=== PATIENT | male | born 1960 | race Caucasian/White ===

== ENCOUNTER 2017-05-16 21:28 | Inpatient (IN) | payer OTHER ==
[~2017-05-16] VITALS: Ht 175.2 cm; Wt 97.5 kg
--- NOTE | ~2017-05-16 | WRIGHTHP ---
[place], [place] PATIENT HISTORY AND PHYSICAL EXAM NAME: ROSINA GARNICA UNIT #: [id number] ROOM: 314 DOCTOR: ARTHUR CAMARGO MD BIRTHDATE: [birth year] DOS: 05/17/2017 REASON FOR HOSPITALIZATION: Increased depression and suicidal ideation with a plan to jump out from the bridge. HISTORY OF PRESENT ILLNESS: The patient seen and chart reviewed. A 57-year-old male who actually presented to [facility] with his prestidigitator for increased depression and suicidal ideation with a plan to jump off of a bridge. The patient got stabilized medically into the ER and then sent to the psychiatric unit for further care and stabilization. In the ER, his labs were within normal limit. Urine drug screen was negative. The patient was pleasant and cooperative during the interview. He mentioned that he heard someone talking about him about a month ago and then he left the town for a week. He said that he came back yesterday, but afraid of going back to his apartment. He said that he became increasingly depressed, sad, hopeless, helpless with lack of energy and motivation. He was having suicidal thoughts. He called his prestidigitator, wanted to talk with him and then his prestidigitator then told him to go to the ER and get help. He said that he went to the ER with his prestidigitator. He mentioned that the reason he has been feeling for the last several years because people have been talking about him. He said that people are making fun about his mental illness and the fact that he gets social security. He said that people are calling the government and pressing charges against him, so that he ended up going to the senior care. He said that he went to the police station to check out that if he has any pending legal charges or not. The patient mentioned that he found out there were no legal charges and the police reassured him that his name has not been there also. The patient talked about not taking his medication regularly. He mentioned that he stopped taking his medication and since then his symptoms started getting worse. When I asked him that why he stopped taking medication, he was not able to come up with any answer, he said "I don't know." Besides thinking that people were talking about him, he denied any other symptoms of psychosis. ALLERGIES: No known drug allergies. PAST MEDICAL HISTORY: Diabetes mellitus, hyperlipidemia, asthma. PAST PSYCHIATRIC HISTORY: One prior psychiatric hospitalization, one prior suicide attempt by overdose on medications. No suicide in the family. He denied having any gun at home. SUBSTANCE ABUSE HISTORY: Nothing reported. SOCIAL HISTORY: He was born and raised in [place], [place], high school graduate. Never . No kids. He is unemployed, on social security. He lives by himself. He denied any history of physical or sexual abuse. He mentioned that he has three sisters and he had good relationship with them. MENTAL STATUS EXAMINATION: The patient was pleasant and cooperative. He was [place], [place] PATIENT HISTORY AND PHYSICAL EXAM NAME: ROSINA GARNICA UNIT #: [id number] ROOM: 314 DOCTOR: ARTHUR CAMARGO MD BIRTHDATE: [birth year] alert and oriented to day, date, month and year. He described his mood as "down." Affect was constricted. Thought process goal directed. No flight of ideas or loosening of association. He denied auditory or visual hallucination, but he is delusional and paranoid. He denied any homicidal ideation, but he still had fleeting suicidal ideation, but no intent or plan. Insight and judgment poor to fair. ASSESSMENT: Major depressive disorder, recurrent with psychotic feature, currently depressed and suicidal. PLAN: 1. I will restart him back on Zoloft 100 mg in the morning and Abilify 15 mg at night. The patient mentioned that the medications were helping him. 2. I will start him back on Vistaril 50 mg twice a day. 3. A 1:1 therapist, psychoeducation, coping skill. 4. Need to get collateral information. 5. Encourage activity in groups. ARTHUR CAMARGO MD CM:HISPHYS:PATIENT HISTORY AND PHYSICAL EXAMINATION [id number] ARTHUR CAMARGO MD 05/17/17 1056 interface
--- NOTE | ~2017-05-16 | DS ---
[place], [place] DISCHARGE SUMMARY NAME: ROSINA GARNICA UNIT #: [id number] ROOM: 314 DOCTOR: JAY GARZA MD BIRTHDATE: [birth year] DOS: 05/20/2017 CHIEF COMPLAINT: "I am just so depressed, I was going to commit suicide. HISTORY OF PRESENT ILLNESS: This is a 57-year-old white male who had initially presented to the [facility] with his school age program associate stating that he was increasingly depressed and suicidal with a plan to jump off of a bridge. The patient reports that he had been on Abilify and Zoloft, but had run out of the medication for some time and gradually fell back into a depression. During this period of time, he has noted poor sleep and appetite, anergy, anhedonia, hopeless, helpless feelings, crying spells, and fleeting suicidal thoughts with a plan. The patient also reports that he is having some thoughts of paranoia and believes people are calling the government and pressing charges against him so that he can go to shelter. He feels that people are talking about him on the streets and is very suspicious of others. Once he was evaluated at [facility] and drug screen was negative and he was found to be medically clear, he was transferred to the [facility] for further crisis stabilization. PAST MEDICAL HISTORY: Remarkable for new onset of diabetes. Also, hyperlipidemia and asthma. SUMMARY OF HOSPITAL COURSE: The patient was admitted to the [facility] by Dr. Escobedo, who was covering for [place] and restarted on Zoloft 100 mg at bedtime along with Abilify 15 mg a day and Vistaril 50 mg twice daily as a nonaddicting antianxiety medication. Within a matter of days of starting the medication, the patient noticed an improvement. Sleep and appetite normalized first. He was able to feel more comfortable around others and actively engaged in individual and group activities. He felt that the medications were working to the point where he was making positive plans for the future and feeling that he could go home and follow up at the [facility] for further treatment and group therapy activities. The patient convincingly denied suicidal thoughts, homicidal thoughts, any self-injurious thoughts and denied any medication side effects themselves. The patient was discharged then to return home on 05/20/2017. MENTAL STATUS AT DISCHARGE: The patient was alert and oriented. Mood was euthymic. Affect appropriate. There was no hypomania or sb. There are no overt auditory or visual hallucinations. No delusions, no paranoia. Short, intermediate, and long-term memory were intact. PLAN: All of his prescriptions have been E[facility]scribed to [facility] except for his vitamin D prescription which was printed and will be sent with him. He will have followup at the [facility] and he has been told to call here if he has any issues regarding his medications or other issues. [place], [place] DISCHARGE SUMMARY NAME: ROSINA GARNICA UNIT #: [id number] ROOM: 314 DOCTOR: JAY GARZA MD BIRTHDATE: [birth year] JAY GARZA MD CM:CLAUDETTE 0950 JAY GARZA MD 05/20/17 0948 interface
--- NOTE | ~2017-05-16 | PR ---
[place], [place] PROGRESS NOTE [id number] UNIT #: [id number] ROOM: 314 DOCTOR: JAY GARZA MD BIRTHDATE: [birth year] DOS: 05/19/2017 CHIEF COMPLAINT: "I am feeling better, thank you." SUMMARY OF THE VISIT: The patient was interviewed in the group therapy room. He reports that the stress level at home was getting to him and that he was not taking his medicines correctly. Now that he is back on them, at least the Abilify, the Vistaril and the Zoloft, he is beginning to feel better. He is sleeping better. His appetite is improved and his overall outlook is improving. We discussed at length possibly going to the [facility] and he did report to me that this program has been brought to his attention previously by his outpatient provider and he is interested in learning more about it. MENTAL STATUS: He is alert and oriented to person, place and time. Mood does seem to be trending towards euthymia. Affect is more appropriate. There is no sb or hypomania. There are no overt auditory or visual hallucinations. No delusions, no paranoia. Short, intermediate, and long-term memory are intact. PLAN: I will maintain his current psychotropic regimen given the fact that he is achieving benefits without side effects. On screening examinations, his vitamin D level is low at 14.9, so I will order vitamin D 50,000 International Units q. Friday. His vitamin B12 level is low normal at 335, so I will give him a vitamin B12 injection of 1000 mcg IM today. Continue to engage in individual and mccoy milieu activity, returning home when psychiatrically stable. JAY GARZA MD CM:PNTRANS [phone] JAY GARZA MD 05/19/17900 interface
--- NOTE | ~2017-05-16 | PR ---
[place], [place] PROGRESS NOTE NAME: [facility]ARN[id number] UNIT #: [id number] ROOM: 314 DOCTOR: ARTHUR CAMARGO MD BIRTHDATE: [birth year] DOS: 05/18/2017 SUBJECTIVE: The patient seen and spoke with the staff. Per staff, the patient is isolative. Medication compliant. No behavioral problems or issues in the unit. The patient was in the day area. He came out from the room to speak with me. He said that he still feels paranoid but does not hear any voices. He still had fleeting suicidal ideation, but no intent or plan. He reports good sleep. He denied any problem with his appetite. He denied any side effect from the medication also. MENTAL STATUS EXAMINATION: The patient was pleasant and cooperative. Described his mood as "okay " Affect was constricted. Thought process goal directed. No flight of ideas, loosening of association. He denied auditory or visual hallucination. He is still paranoid. He had fleeting suicidal ideation, but no intent or plan. Denied any homicidal ideation, intent or plan. PLAN: 1. Continue current medication and care. 2. Continue redirection. 3. Encourage activity and groups. ARTHUR CAMARGO MD CM:PNTRANS [id number] [phone] ARTHUR CAMARGO MD 05/18/172103 interface
[2017-05-16] MEDS ORDERED: PROVENTIL HFA6.7 GM INH (22:05)
[2017-05-16] MEDS ORDERED: SERTRALINE HYD100 MG PO (22:38)
[2017-05-16] MEDS ORDERED: OMEPRAZOLE D/R20 MG PO (22:40)
[2017-05-16] MEDS ORDERED: DIVALPROEX SOD500 M1 PO (22:41)
[2017-05-16] MEDS ORDERED: ARIPIPRAZOLE15 MG PO (22:42)
[2017-05-16] MEDS ORDERED: DULERA 100 MCG8.8 GM INH (22:44)
[2017-05-16] MEDS ORDERED: HYDROXYZINE PAM25 M1 PO (22:46)
[2017-05-16 23:51] VITALS: BP 138/93
[2017-05-16 23:58] VITALS: BP 138/93
[2017-05-17 00:39] LABS: BILIRUBIN NEGATIVE (NEGATIVE); BLOOD NEGATIVE (NEGATIVE); CLARITY SL CLOUDY (CLEAR); COLOR YELLOW (YELLOW); GLUCOSE 3+ (NEGATIVE); KETONE NEGATIVE (NEGATIVE); LEUKO ESTERASE NEGATIVE (NEGATIVE); NITRITE NEGATIVE (NEGATIVE); PH 5.5 (5.0-9.0); SPECIFIC GRAVITY <= 1.005 (1.005-1.030); UROBILINOGEN 0.2 E.U./dl (0.2-1.0)
[2017-05-17 00:50] LABS: WBC 0-2 wbc/hpf (0-5)
[2017-05-17 06:49] LABS: BASO # 0.1 10*3/uL (0.0-0.1); BASO % 0.8 % (0.0-1.0); EOS # 0.4 10*3/uL (0.0-0.4); EOS % 5.3 % (1.0-4.0); HEMATOCRIT 41.1 % (42.0-52.0); HEMOGLOBIN 14.8 g/dl (14.0-18.0); LYMPH # 1.8 10*3/uL (1.3-4.4); LYMPH % 27.6 % (27.0-41.0); MEAN CELL VOLUME 86.9 fl (80.0-94.0); MEAN CORPUSCULAR HGB 31.3 pg (27.0-31.0); MONO # 0.6 10*3/uL (0.1-1.0); MONO % 8.5 % (3.0-9.0); NEUT # 3.8 10*3/uL (2.3-7.9); NEUT % 57.2 % (47.0-73.0); PLATELET COUNT AUTOMATED 185 10*3/uL (130-400); RED BLOOD COUNT 4.73 10*6/uL (4.50-5.90); RED CELL DISTRI WIDTH 12.1 % (0-14.5); WHITE BLOOD COUNT 6.6 10*3/uL (4.8-10.8)
[2017-05-17 07:00] LABS: ALBUMIN 3.7 gm/dl (3.1-4.5); ALKALINE PHOSPHATASE 68 U/L (45-117); BUN 13 mg/dl (7-24); CHLORIDE 102 mmol/L (98-107); CHOLESTEROL 144 mg/dL (<200); CREATININE 1.08 mg/dL (0.70-1.30); HDL CHOLESTEROL 27 mg/dl (40-60); LDL CHOLESTEROL 66 mg/dL (9-159); POTASSIUM 4.4 mmol/L (3.5-5.1); SGOT/AST 42 IU/L (3-35); SGPT/ALT 67 U/L (12-78); SODIUM 138 mmol/L (136-145); TOTAL PROTEIN 7.2 gm/dL (6.4-8.2); TRIGLYCERIDES 254 mg/dl (<150); VLDL CHOLESTEROL 51 mg/dL (6-40)
[2017-05-17 07:05] LABS: VALPROIC ACID (DEPAKENE) < 3.0 ug/ml (50-100)
[2017-05-17 08:18] LABS: VITAMIN D, 25-HYDROXY 14.9 ng/mL (30-100)
[2017-05-17 08:36] VITALS: BP 140/82
[2017-05-17 20:26] VITALS: BP 118/78; BP 139/79
[2017-05-18 08:19] VITALS: BP 126/81
[2017-05-18 20:00] VITALS: BP 136/86
[2017-05-19 07:37] VITALS: BP 132/78
[2017-05-19 20:33] VITALS: BP 141/82
[2017-05-20 07:27] VITALS: BP 136/79
[2017-05-20] MEDS ORDERED: ATARAX,VISTARIL50 MG PO (09:00)
[2017-05-20] MEDS ORDERED: SERTRALINE HYD100 MG PO (09:00)
[2017-05-20] MEDS ORDERED: ARIPIPRAZOLE15 MG PO (09:00)
[2017-05-20] MEDS ORDERED: Vitamin D PO (09:00)
[2017-05-20] MEDS ORDERED: METFORMIN1000 MG PO (11:45)
== END 2017-05-20 15:50 | disposition home or self-care (01) | DRG 885 ==
LOC: 3N 21:28
PROVIDERS: Psychiatry & Neurology Psychiatry
DX: F33.3 Major depressive disorder, recurrent, severe with psychotic symptoms (principal); R45.851 Suicidal ideations; E11.65 Type 2 diabetes mellitus with hyperglycemia; E78.5 Hyperlipidemia, unspecified; F41.9 Anxiety disorder, unspecified; J45.20 Mild intermittent asthma, uncomplicated; G47.00 Insomnia, unspecified; K21.9 Gastro-esophageal reflux disease without esophagitis; Z80.0 Family history of malignant neoplasm of digestive organs; Z79.899 Other long term (current) drug therapy

== ENCOUNTER 2018-01-17 13:11 | Inpatient (IN) | payer OTHER ==
[~2018-01-17] VITALS: Ht 175.2 cm; Wt 83.0 kg
--- NOTE | ~2018-01-17 | EKG ---
[place], [place] ELECTROCARDIOGRAM REPORT NAME: ROSINA GARNICA UNIT #: [id number] ROOM: [facility] DOCTOR: MILEY DRAFT REPORT BIRTHDATE: [birth year] [facility] Test Date: 2018-01-17 Test Time: 14:23:01 Pat Name: ROSINA GARNICA Department: ER Room: [facility] Gender: M Heavy Mobile Equipment Operator: : 1960 Requested By: FLAKITO POTTS Order Number: [id number] Reading MD: Claudy Taylor MD Measurements Intervals [place] Rate: 109 P: 48 NE: 178 QRS: 30 QRSD: 94 T: 8 QT: 331 QTc: 446 Interpretive Statements Sinus tachycardia The ECG is normal. Electronically Signed On 01-18-2018 5:35:33 PDT by Claudy Taylor MD CM:EKGRPT:ELECTROCARDIOGRAM REPORT [id number] [id number] FLAKITO HEWITT DRAFT REPORT FLAKITO POTTS DO
[~2018-01-17 13:11] MED LIST: ARIPIPRAZOLE15 MG PO; ATARAX,VISTARIL50 MG PO; DIVALPROEX SOD500 M1 PO; DULERA 100 MCG8.8 GM INH; HYDROXYZINE PAM25 M1 PO; METFORMIN1000 MG PO; OMEPRAZOLE D/R20 MG PO; PROVENTIL HFA6.7 GM INH; SERTRALINE HYD100 MG PO; Vitamin D PO
[2018-01-17 13:13] VITALS: BP 140/80
[2018-01-17 14:15] LABS: BASO % 0.3 % (0.0-1.0); EOS # 0.1 10*3/uL (0.0-0.4); EOS % 0.6 % (1.0-4.0); HEMATOCRIT 42.8 % (42.0-52.0); LYMPH # 2.1 10*3/uL (1.3-4.4); MEAN CELL VOLUME 88.4 fl (80.0-94.0); MEAN PLATELET VOLUME 8.8 fl (9.6-12.3); MONO # 0.8 10*3/uL (0.1-1.0); MONO % 8.6 % (3.0-9.0); NEUT # 6.1 10*3/uL (2.3-7.9); NEUT % 67.2 % (47.0-73.0); PLATELET COUNT AUTOMATED 217 10*3/uL (130-400); RED BLOOD COUNT 4.84 10*6/uL (4.50-5.90); RED CELL DISTRI WIDTH 12.4 % (0-14.5); WHITE BLOOD COUNT 9.1 10*3/uL (4.8-10.8)
[2018-01-17 14:22] LABS: ACT PARTIAL THROMBO TIME 27.9 SECONDS (20.8-31.5)
[2018-01-17 14:28] LABS: ALBUMIN 4.2 gm/dl (3.1-4.5); ALKALINE PHOSPHATASE 71 U/L (45-117); BUN 14 mg/dl (7-24); CHLORIDE 101 mmol/L (98-107); CREATININE 1.25 mg/dL (0.70-1.30); LIPASE 155 U/L (73-393); POTASSIUM 4.4 mmol/L (3.5-5.1); SGOT/AST 23 IU/L (3-35); SGPT/ALT 31 U/L (12-78); SODIUM 136 mmol/L (136-145); TOTAL PROTEIN 7.6 gm/dL (6.4-8.2)
[2018-01-17 14:30] LABS: ACETAMINOPHEN (TYLENOL) < 2.0 ug/ml (10-30); ETHYL ALCOHOL < 3.0 mg/dl (<3); TROPONIN I 0.208 ng/ml (<0.045)
[2018-01-17 14:45] VITALS: BP 146/76
[2018-01-17 16:00] VITALS: BP 133/84
[2018-01-17 20:00] VITALS: BP 129/72
[2018-01-17 22:36] LABS: BILIRUBIN NEGATIVE (NEGATIVE); BLOOD NEGATIVE (NEGATIVE); CLARITY CLEAR (CLEAR); COLOR YELLOW (YELLOW); GLUCOSE 1+ (NEGATIVE); KETONE NEGATIVE (NEGATIVE); LEUKO ESTERASE NEGATIVE (NEGATIVE); NITRITE NEGATIVE (NEGATIVE); PH 6.5 (5.0-9.0); UROBILINOGEN 0.2 E.U./dl (0.2-1.0)
[2018-01-17 22:44] LABS: URINE AMPHETAMINES < 1000 (1000ng/ml); URINE BARBITURATES < 200 (200ng/ml); URINE BENZODIAZEPINES < 200 (200ng/ml); URINE CANNABINOIDS (THC) < 50 (50ng/ml); URINE COCAINE < 300 (300ng/ml); URINE METHADONE < 300 (300ng/ml); URINE OPIATES < 300 (300ng/ml)
[2018-01-17 22:48] LABS: URINE PHENCYCLIDINE < 25 (25ng/ml)
[2018-01-17 23:01] LABS: WBC 0-2 wbc/hpf (0-5)
[2018-01-18] VITALS: BP 139/87
[2018-01-18 06:29] LABS: ALBUMIN 3.6 gm/dl (3.1-4.5); ALKALINE PHOSPHATASE 52 U/L (45-117); BUN 10 mg/dl (7-24); CHLORIDE 105 mmol/L (98-107); CHOLESTEROL 135 mg/dL (<200); HDL CHOLESTEROL 27 mg/dl (40-60); LDL CHOLESTEROL 77 mg/dL (9-159); PHOSPHOROUS 3.5 mg/dL (2.5-4.9); POTASSIUM 4.3 mmol/L (3.5-5.1); SGOT/AST 22 IU/L (3-35); SGPT/ALT 26 U/L (12-78); SODIUM 138 mmol/L (136-145); TOTAL PROTEIN 6.6 gm/dL (6.4-8.2); TRIGLYCERIDES 153 mg/dl (<150); VLDL CHOLESTEROL 31 mg/dL (6-40)
[2018-01-18 06:30] LABS: FREE T4 1.05 ng/dl (0.76-1.46)
[2018-01-18 06:31] LABS: TROPONIN I 0.159 ng/ml (<0.045)
[2018-01-18 06:34] LABS: BASO # 0.1 10*3/uL (0.0-0.1); BASO % 0.8 % (0.0-1.0); EOS # 0.3 10*3/uL (0.0-0.4); EOS % 3.5 % (1.0-4.0); HEMATOCRIT 39.7 % (42.0-52.0); HEMOGLOBIN 13.5 g/dl (14.0-18.0); LYMPH # 2.3 10*3/uL (1.3-4.4); LYMPH % 31.7 % (27.0-41.0); MEAN CELL VOLUME 90.6 fl (80.0-94.0); MEAN CORPUSCULAR HGB 30.8 pg (27.0-31.0); MONO # 0.6 10*3/uL (0.1-1.0); NEUT # 3.9 10*3/uL (2.3-7.9); NEUT % 54.4 % (47.0-73.0); PLATELET COUNT AUTOMATED 205 10*3/uL (130-400); RED BLOOD COUNT 4.38 10*6/uL (4.50-5.90); RED CELL DISTRI WIDTH 12.5 % (0-14.5); WHITE BLOOD COUNT 7.1 10*3/uL (4.8-10.8)
[2018-01-18 06:53] LABS: ACT PARTIAL THROMBO TIME 28.1 SECONDS (20.8-31.5)
[2018-01-18 07:43] LABS: VITAMIN D, 25-HYDROXY 19.5 ng/mL (30-100)
[2018-01-18 08:00] VITALS: BP 122/78
[2018-01-18 12:00] VITALS: BP 135/80
[2018-01-18 16:00] VITALS: BP 147/86
[2018-01-18 20:00] VITALS: BP 146/87
[2018-01-19] VITALS: BP 127/105
[2018-01-19 04:00] VITALS: BP 153/97
[2018-01-19 05:37] LABS: BASO % 0.4 % (0.0-1.0); EOS # 0.1 10*3/uL (0.0-0.4); EOS % 1.1 % (1.0-4.0); HEMATOCRIT 37.8 % (42.0-52.0); HEMOGLOBIN 13.1 g/dl (14.0-18.0); LYMPH # 1.4 10*3/uL (1.3-4.4); MEAN CELL VOLUME 88.5 fl (80.0-94.0); MEAN CORPUSCULAR HGB 30.7 pg (27.0-31.0); MEAN CORPUSCULAR HGB CONC 34.7 g/dl (33.0-37.0); MEAN PLATELET VOLUME 8.7 fl (9.6-12.3); MONO # 0.5 10*3/uL (0.1-1.0); MONO % 7.6 % (3.0-9.0); NEUT # 4.9 10*3/uL (2.3-7.9); NEUT % 70.6 % (47.0-73.0); PLATELET COUNT AUTOMATED 177 10*3/uL (130-400); RED BLOOD COUNT 4.27 10*6/uL (4.50-5.90); RED CELL DISTRI WIDTH 11.9 % (0-14.5)
[2018-01-19 05:53] LABS: BUN 8 mg/dl (7-24); CHLORIDE 106 mmol/L (98-107); CREATININE 0.93 mg/dL (0.70-1.30); SODIUM 139 mmol/L (136-145)
[2018-01-19 05:54] LABS: TROPONIN I 0.066 ng/ml (<0.045)
[2018-01-19 08:00] VITALS: BP 135/82
[2018-01-19 16:00] VITALS: BP 130/77
[2018-01-26] MEDS ORDERED: VITAMIN D5000 UNI1 PO (08:45)
[2018-01-26] MEDS ORDERED: B121000 MCG/1 IM (08:45)
[2018-01-26] MEDS ORDERED: MIRTAZAPINE15 M2 PO (08:45)
[2018-01-26] MEDS ORDERED: PALIPERIDONE ER6 MG PO (08:45)
== END 2018-01-19 18:15 | disposition home health service (06) | DRG 885 ==
LOC: ED 13:11 → ICCU 15:23 → EDHOLD 15:23 → ICCU 15:49
PROVIDERS: Emergency Medicine; Family Medicine; Internal Medicine; Student in an Organized Health Care Education/Training Program
PROC: 4A02XM4 Measurement of Cardiac Total Activity, External Approach (ICD-10-PCS; principal; 2018-01-19)
DX: F20.9 Schizophrenia, unspecified (principal); R45.851 Suicidal ideations; E87.2 Acidosis; F32.9 Major depressive disorder, single episode, unspecified; E11.65 Type 2 diabetes mellitus with hyperglycemia; F41.9 Anxiety disorder, unspecified; R74.8 Abnormal levels of other serum enzymes; J45.909 Unspecified asthma, uncomplicated; E78.5 Hyperlipidemia, unspecified; Z91.5 Personal history of self-harm; Z91.89 Other specified personal risk factors, not elsewhere classified; Z80.0 Family history of malignant neoplasm of digestive organs; Z79.84 Long term (current) use of oral hypoglycemic drugs; Z79.51 Long term (current) use of inhaled steroids; Z79.899 Other long term (current) drug therapy

== ENCOUNTER 2018-10-29 17:59 | Inpatient (IN) | payer OTHER ==
[~2018-10-29] VITALS: Ht 175.2 cm; Wt 89.8 kg
--- NOTE | ~2018-10-29 | PR ---
[place], [place] PROGRESS NOTE NAME: ROSINA GARNICA UNIT #: [id number] ROOM: 312 DOCTOR: ARTHUR CAMARGO MD BIRTHDATE: [birth year] DOS: 11/06/2018 SUBJECTIVE: Patient seen and spoke with the staff. Per staff, the patient is doing well. Still paranoid, but no behavior problems or issues. He slept 8 hours. He is compliant with his medication. The patient was pleasant and cooperative. He said that he is feeling "a little better." Still feels paranoid, but not as strong as before. The patient mentioned that his social secretary is working on it also with the legal side of it. MENTAL STATUS EXAMINATION: The patient was pleasant and cooperative. Described his mood as "okay." Affect was euthymic. Thought process goal directed. No flight of ideas, loosening of association. He denied auditory or visual hallucination. He seems to be delusional and paranoid. He denied suicidal ideation, intent or plan. He also denied homicidal ideation, intent or plan. PLAN: 1. Continue current medication and care. 2. Continue redirection and supportive care. ARTHUR CAMARGO MD CM:PNAKIRA [id number] ARTHUR CAMARGO MD 11/07/18 0218 interface
--- NOTE | ~2018-10-29 | CON ---
[place], [place] REPORT OF CONSULTATION NAME: ROSINA GARNICA UNIT #: [id number] ROOM: 312 DOCTOR: PHD ANNA MASSIMO BIRTHDATE: [birth year] DOS: 11/03/2018 HISTORY OF PRESENT ILLNESS: The patient is a 58-year-old male referred by Michelle Larkin CNP for counseling. At the present time, the patient is on the [facility] Unit at [facility]. He was admitted following a suicide attempt. He tried to kill himself by electrocuting himself in the shower and drinking about 12 ounces of operations planner. He also was experiencing auditory hallucinations and paranoia. He lives alone. He is single and has no children. He is on disability. He denied alcohol, tobacco and illegal drug use. PAST MEDICAL HISTORY: Anxiety, depression, gastroesophageal reflux disease, hyperglycemia, insomnia, schizophrenia, suicidal ideation, previous history of drug overdose and previous history of suicide attempts. MEDICATIONS: Cymbalta, Lipitor, Glucophage, Zyrtec, vitamin D, Risperdal, Carafate, Benadryl, Geodon, Maalox, milk of magnesia, Tylenol, Remeron, Ativan. The patient was sitting comfortably, in no apparent distress. He was awake, alert and oriented to person, place and time. Mood was depressed and anxious. Affect was blunted. He denied current suicidal ideation, plan and intent. There is no homicidal ideation. Speech and language were within normal limits conversationally. Thought process was goal directed. He did not appear to be responding to internal stimuli. He believes that there is a warrant out for his arrest for disability fraud. He remains convinced of this despite law enforcement having told and there is no warrant prior to his hospitalization. Engaged in cognitive restructuring with little success. Also discussed safety planning with the patient and processed grief over his mother's 10 years ago utilized CBT and supportive therapy interventions. DIAGNOSIS: Schizoaffective disorder. PLAN: The patient follows up with a therapist, psychiatrist and manager case management at the counseling center in [place] and plans to continue this when he is discharged. I will follow him as an inpatient as needed. Thank you very much for this consult. Helen Plaza, PhD CM:CONSTR:REPORT OF CONSULTATION 1157 11/04/18 0136 interface
--- NOTE | ~2018-10-29 | PR ---
[place], [place] PROGRESS NOTE [id number] UN[facility] #: [id number] ROOM: 312 DOCTOR: ARTHUR CAMARGO MD BIRTHDATE: [birth year] DOS: 11/07/2018 PSYCHIATRIC PROGRESS NOTE SUBJECTIVE: The patient is seen and spoke with the staff. Per staff, the patient slept well last night. Compliant with medication, but isolated and guarded. The patient was pleasant and cooperative. He was in the day area. He reports doing well. He initially denied any paranoia, but later acknowledges that he still had some paranoid thoughts, but it is getting much less. He is taking his medication regularly. Denied any side effects. He reports good sleep and appetite. MENTAL STATUS EXAMINATION: The patient was pleasant and cooperative. Described his mood as "okay." Affect was flat, constricted. Thought process goal directed. No flight of ideas, loosening of association. He denied auditory or visual hallucination. He is still delusional, paranoid, but less. He denied any suicidal ideation, intent or plan. He also denied any homicidal ideation, intent or plan. PLAN: 1. Continue current medication and care. 2. Continue redirection. 3. Supportive care. ARTHUR CAMARGO MD CM:PNTRANS 43 [phone] ARTHUR CAMARGO MD 11/08/182350 interface
--- NOTE | ~2018-10-29 | PR ---
[place], [place] PROGRESS NOTE NAME: ROSINA GARNICA UNIT #: [id number] ROOM: 312 DOCTOR: ARTHUR CAMARGO MD BIRTHDATE: [birth year] DOS: 11/02/2018 PSYCHIATRIC PROGRESS NOTE SUBJECTIVE: The patient seen and spoke with the nursing staff. Per staff, the patient was pleasant, cooperative. No behavioral problems, doing well. He reports poor sleep. Denied any problem with his appetite. He said that his biggest stressor is financial and some pending legal issues. He denied any side effect from the medication. MENTAL STATUS EXAMINATION: The patient was pleasant and cooperative. He described his mood as "okay." Affect was euthymic. Thought process goal directed. No flight of ideas or loosening of association. He denied suicidal ideation, intent or plan. He also denied any homicidal ideation, intent or plan. PLAN: 1. Continue current medication and care. 2. Continue redirection 3. Supportive care. ARTHUR CAMARGO MD CM:PNTRANS ARTHUR CAMARGO MD 11/03/18 0229 interface
--- NOTE | ~2018-10-29 | PR ---
[place], [place] PROGRESS NOTE NAME: ROSINA GARNICA UNIT #: [id number] ROOM: 312 DOCTOR: ARTHUR CAMARGO MD BIRTHDATE: [birth year] DOS: 11/03/2018 PSYCHIATRIC PROGRESS NOTE SUBJECTIVE: The patient is seen and spoke with the staff. Per staff, the patient is a little bit better, but still concerned about warrant out for his arrest. He is taking his medication and did not have any side effects. The patient was pleasant and cooperative. He came to me; he said that he is feeling a little bit better. He reports good sleep and appetite. He denied any side effects from the medication. MENTAL STATUS EXAMINATION: The patient was pleasant, cooperative. He described his mood as "better." Affect was euthymic. Thought process goal directed. No flight of ideas, loosening of association. He denied auditory or visual hallucination. He is delusional, paranoid. He denied suicidal ideation, intent or plan. He also denied homicidal ideation, intent or plan. PLAN: 1. Continue current medication and care. 2. Continue redirection. 3. Supportive care. ARTHUR CAMARGO MD CM:PNTRANS 1849 ARTHUR CAMARGO MD 11/04/18 3500 interface
--- NOTE | ~2018-10-29 | DS ---
[place], [place] DISCHARGE SUMMARY NAME: ROSINA GARNICA [facility] #: [id number] UNIT #: [id number] ROOM: 312 DOCTOR: JAY GARZA MD BIRTHDATE: [birth year] DOS: 11/10/2018 DISCHARGE SUMMARY CHIEF COMPLAINT: "I feel depressed." HISTORY OF PRESENT ILLNESS: This is a 58-year-old white male known to me from a previous admission to the [facility], presenting with a history of bipolar 1 disorder with suicidal ideation. The patient had been visiting a friend for 4 days and was unable to take his medication because he did not take them with him. At this time, he began developing auditory command hallucinations and attempted to then burn himself by taking an electric device into the shower with him and then drinking approximately 12 ounces of the thermodynamics engineer. The patient was evaluated by the ethylene oxide panelboard operator at [facility], who performed an esophagram that revealed some erosive changes, no other issues were done and he was medically stabilized and then sent to the [facility] for further stabilization on his medication regimen. SUMMARY OF HOSPITAL COURSE: The patient was admitted to the unit where he was maintained on his Remeron 15 at bedtime, but Cymbalta 30 mg a day was added. Additionally, his Risperdal was increased from 2 mg a day to 2 mg twice a day to combat the psychosis that was present. The patient tolerated these medication changes well and had a very robust response to the changes and slept well, ate well. The voices completely ceased and he voiced positive plans for the future and ultimately was discharged home. MENTAL STATUS AT DISCHARGE: The patient is alert and oriented to person, place, and time. Mood is euthymic. Affect is appropriate. Speech rate and pattern is within normal limits. He denies any symptoms of depression. There are no suicidal thoughts, homicidal thoughts, or self-injurious thoughts. No hypomania or sb is present. No auditory or visual hallucinations. No delusions are voiced. No paranoia is present. Short, intermediate, and long-term memory are intact. FINAL DIAGNOSIS: Schizoaffective disorder. DISPOSITION: All of his medications have been e-scribed to [facility] [place]. He will have followup in the community with his outpatient providers. [place], [place] DISCHARGE SUMMARY NAME: ROSINA GARNICA UNIT #: [id number] ROOM: 312 DOCTOR: JAY GARZA MD BIRTHDATE: [birth year] JAY GARZA MD CM:CLAUDETTE JAY GARZA MD 11/10/1849 interface
--- NOTE | ~2018-10-29 | PR ---
[place], [place] PROGRESS NOTE NAME: ROSINA GARNICA UNIT #: [id number] ROOM: 312 DOCTOR: ARTHUR CAMARGO MD BIRTHDATE: [birth year] DOS: 11/05/2018 PSYCHIATRIC PROGRESS NOTE SUBJECTIVE: The patient seen and spoke with the nursing staff. Per staff, the patient slept 7 hours, med compliant, states that he is feeling better, continued to be paranoid about warrants for her arrest. The patient was pleasant and cooperative. He was in the day area, somewhat isolated and flat. He reports doing well. He reluctantly agreed that he is still feeling paranoid, but said that it is much better. He denied any other psychotic symptoms. He denied depressed mood or hopelessness. Denied any other neurovegetative signs and symptoms of depression. MENTAL STATUS EXAMINATION: Pleasant and cooperative. Described his mood as "okay." Affect was guarded. Thought process goal directed. No flight of ideas, loosening of association. He denied auditory or visual hallucinations. He is delusional, paranoid. He denied suicidal ideation, intent or plan. He also denied any homicidal ideation, intent or plan. Insight and judgment was poor to fair. PLAN: 1. Continue current medication and care. 2. Continue redirection. 3. Supportive care. ARTHUR CAMARGO MD CM:PNTRANS [phone] ARTHUR CAMARGO MD 11/06/18 0410 interface
--- NOTE | ~2018-10-29 | PR ---
[place], [place] PROGRESS NOTE NAME: ROSINA GARNICA UNIT #: [id number] ROOM: 312 DOCTOR: JAY GARZA MD BIRTHDATE: [birth year] DOS: 11/09/2018 CHIEF COMPLAINT: "I think I feel better." SUMMARY OF THE VISIT: The patient was interviewed as he was sitting in the dining room. He had already eaten his breakfast. He smiled readily as I approached and stated that he remembered me because of my shirts. He shook my hand and stated that he is feeling much better since he came here and that the medication changes have been working. He convincingly denies side effects other than dry mouth. MENTAL STATUS: He is alert and oriented to person, place and time. Mood does seem to be more euthymic. Affect is more appropriate. There is no sb or hypomania noted. There is no gross psychosis. He denies suicidal thoughts, homicidal thoughts and self-injurious thoughts. Memory is intact. I will monitor him for the next 24 hours as I am not familiar enough with him to see if this is truly his baseline. If there are no significant changes and he voices a readiness for discharge, we will plan discharge on Friday with followup in the community. JAY GARZA MD CM:PNTRANS [id number] JYA GARZA MD 11/09/182228 interface
--- NOTE | ~2018-10-29 | PR ---
[place], [place] PROGRESS NOTE NAME: [id number] UNIT #: [id number] ROOM: 312 DOCTOR: CHARLOTTE LARKIN CNP BIRTHDATE: [birth year] DOS: 11/01/2018 CHIEF COMPLAINT: "I had a rough start getting to sleep last night." SUMMARY OF VISIT: The patient was interviewed as he sat in the dining room, eating his breakfast. The patient reports that he did have difficulty falling asleep, but he reports that after he went to sleep, he slept well. He denies any current suicidal ideation and reports that he has no current plan. However, if he would be discharged, he reports that he would jump off of a bridge. The patient has exhibited delusions to the staff, paranoid thoughts that everyone in his town hates him. The patient does continue to isolate at times. The patient is currently one-on-one with staff. Staff reports that he did sleep 8 hours last night. He has been compliant with his medications and that his appetite has been good. MENTAL STATUS EXAMINATION: The patient is alert and oriented to person, place and time. He was pleasant and cooperative with me. No sb or hypomania noted. No delusions or paranoia noted at this time. No auditory or visual hallucinations noted. The patient's mood remains depressed. His affect is congruent with mood. No agitation or aggression noted. The patient's judgment and insight continue to be poor. PLAN: Since the patient has no current plan to hurt himself on the unit, we will change him to a line of sight; however, I do recommend that the staff shave the patient, do not allow him to shave himself. I am recommending that Dr. Plaza meet with the patient for counseling. We will continue the patient's current medications as prescribed as he seems to be tolerating them at this time without any side effects. We will continue to encourage the patient to engage in individual and mccoy milieu activity. Continue fall and safety precautions and plan to return the patient to the least restrictive environment once he is considered psychiatrically stable. Charlotte Larkin CNP CM:PNTRANS [phone] CHARLOTTE LARKIN [facility] 11/01/18 1015 interface
--- NOTE | ~2018-10-29 | PR ---
[place], [place] PROGRESS NOTE [id number] UN[facility] #: [id number] ROOM: 312 DOCTOR: ARTHUR CAMARGO MD BIRTHDATE: [birth year] DOS: 11/08/2018 PSYCHIATRIC PROGRESS NOTE. SUBJECTIVE: The patient seen and I spoke with the nursing staff. Per nursing, he slept 7 hours. No behavioral problems or issues. Does not seem to be paranoid, but he was pacing the hallway. The patient was pleasant and cooperative. He was in the day area. He said that he is doing "very good." He said that he slept well and feels that the medication is helping him. He denied any paranoia. He says the paranoia has already gone. He reports good sleep and appetite. I offered him long-acting injection Risperdal Consta, the patient refused it. MENTAL STATUS EXAMINATION: The patient was pleasant and cooperative. Described her mood as "fine." Affect was euthymic. Thought process goal directed. No flight of ideas, loosening of association. He denied auditory or visual hallucination. No delusion or paranoia noted. He denied suicidal ideation, intent or plan. He also denied any homicidal ideation, intent or plan. PLAN: 1. Continue current medication and care. 2. Continue redirection. 3. Supportive care. ARTHUR CAMARGO MD CM:PNTRANS [phone] ARTHUR CAMARGO MD 11/08/18 201 interface
--- NOTE | ~2018-10-29 | WRIGHTHP ---
[place], [place] PATIENT HISTORY AND PHYSICAL EXAM [id number] UN[facility] #: [id number] ROOM: 315 DOCTOR: CHARLOTTE LARKIN CNP BIRTHDATE: [birth year] DOS: 10/31/2018 INITIAL PSYCHIATRIC EVALUATION CHIEF COMPLAINT: "I feel depressed." HISTORY OF PRESENT ILLNESS: This is a 58-year-old male with a history of bipolar 1 disorder who was admitted with a chief complaint of suicidal ideation. He had been visiting a friend for 4 days and was unable to take his medications because he did not take them with him. as a result, the patient developed auditory hallucinations, paranoia and suicidal ideation. He then attempted to commit suicide by burning an electric device into the shower and then drinking approximately 12 ounces of a agricultural and forestry supervisor. The patient was evaluated by the personal assistant at [facility] who performed an esophagram that revealed erosive changes. No obstruction and moderate stomach distention. The patient was then started on Carafate 4 times a day for the next 2 months and a soft diet. It was decided once the patient was medically cleared to admit him to the Behavioral Health Unit here at [facility] to rule out any further organic factors and to attempt to stabilize him on medication. Staff reports that the patient did sleep well last night that his appetite has been good. The patient does have a depressed affect. They have not noted any auditory or visual hallucinations at this time. The patient reports to me that he does feel depressed; however, he denies any suicidal ideation at this time. PAST MEDICAL HISTORY: Remarkable for anxiety, depression, gastroesophageal reflux disease, hyperglycemia, insomnia, schizophrenia, suicidal ideation, previous history of drug overdose and previous known history of suicide attempt. SOCIAL HISTORY: The patient does not drink alcohol. He does not smoke and does not use illicit drugs. STRENGTHS: The patient is ambulatory and has good verbal skills. WEAKNESSES: Poor coping skills and long history of psychiatric disorders. MENTAL STATUS: The patient is alert and oriented to person, place and time. He was pleasant and cooperative with me. No sb or hypomania noted at this time. No delusions or paranoia noted. No auditory or visual hallucinations noted. The patient's mood was calm; however, depressed. PSYCHIATRIC: His affect is flat. The patient's judgment and insight are poor. DIAGNOSIS: Schizoaffective disorder. PLAN: The patient was started on Cymbalta 30 mg at bedtime. Plan to increase that to 60 mg at bedtime for depression symptoms. We will continue the patient's Risperdal 2 mg at bedtime. We will encourage the patient to engage in individual and mccoy milieu activity. We will continue fall and safety precautions. Plan to return the patient to the least restrictive environment once he is considered psychiatrically stable. [place], [place] PATIENT HISTORY AND PHYSICAL EXAM NAME: ROSINA GARNICA UNIT #: [id number] ROOM: [facility] DOCTOR: CHARLOTTE LARKIN CNP BIRTHDATE: [birth year] Charlotte Larkin CNP CM:HISPHYS:PATIENT HISTORY AND PHYSICAL EXAMINATION [phone] CHARLOTTE LARKIN CNP 10/31/18 1210 interface
--- NOTE | ~2018-10-29 | PR ---
[place], [place] PROGRESS NOTE NAME: ROSINA GARNICA UNIT #: [id number] ROOM: 312 DOCTOR: ARTHUR CAMARGO MD BIRTHDATE: [birth year] DOS: 11/04/2018 PSYCHIATRIC PROGRESS NOTE SUBJECTIVE: The patient is seen and spoke with the staff. Per staff, the patient slept 7 hours, med compliant and denied any thoughts of harming himself or anyone else. He is still guarded, but less paranoid. The patient was pleasant and cooperative. He reports he is doing well. He said that the paranoia is still there, but less and he does not want to hurt himself. He is taking his medication regularly and did not have any side effects. MENTAL STATUS EXAMINATION: Pleasant and cooperative. Described his mood as "okay." Affect was euthymic. Thought process goal directed. No flight of ideas, loosening of association. He denied auditory or visual hallucination. He is still a little paranoid. No overt delusion noted. He denied suicidal ideation, intent or plan. He also denied homicidal ideation, intent or plan. PLAN: 1. I will increase his Risperdal to 2 mg twice a day. 2. Continue redirection. 3. Continue 1:1 for tonight, but discontinue in the morning. ARTHUR CAMARGO MD CM:PNTRANS [id number] [phone] ARTHUR CAMARGO MD 11/05/182324 interface
[~2018-10-29 17:59] MED LIST changes: +B121000 MCG/1 IM; +MIRTAZAPINE15 M2 PO; +PALIPERIDONE ER6 MG PO; +VITAMIN D5000 UNI1 PO
[2018-10-29] MEDS ORDERED: CETIRIZINE HYDR10 MG PO (18:27)
[2018-10-29] MEDS ORDERED: LIPITOR20 MG PO (18:29)
[2018-10-29] MEDS ORDERED: BENADRYL ALLERG25 M5 PO (18:31)
[2018-10-29] MEDS ORDERED: RISPERDAL2 M1 PO (18:36)
[2018-10-30] MEDS ORDERED: CARAFATE1 G1 PO (16:21)
[2018-10-30] MEDS ORDERED: TEARS NATURALE,15 ML OPH (16:22)
[2018-10-30 20:36] VITALS: BP 134/86
[2018-10-30 20:51] VITALS: BP 134/86
[2018-10-31 07:09] LABS: BASO % 0.5 % (0.0-1.0); EOS # 0.6 10*3/uL (0.0-0.4); EOS % 9.8 % (1.0-4.0); HEMATOCRIT 44.7 % (42.0-52.0); HEMOGLOBIN 14.8 g/dl (14.0-18.0); LYMPH # 1.7 10*3/uL (1.3-4.4); LYMPH % 25.3 % (27.0-41.0); MEAN CELL VOLUME 91.2 fl (80.0-94.0); MEAN CORPUSCULAR HGB 30.2 pg (27.0-31.0); MEAN CORPUSCULAR HGB CONC 33.1 g/dl (33.0-37.0); MEAN PLATELET VOLUME 9.1 fl (9.6-12.3); MONO # 0.5 10*3/uL (0.1-1.0); MONO % 7.4 % (3.0-9.0); NEUT # 3.7 10*3/uL (2.3-7.9); NEUT % 56.7 % (47.0-73.0); PLATELET COUNT AUTOMATED 190 10*3/uL (130-400); WHITE BLOOD COUNT 6.5 10*3/uL (4.8-10.8)
[2018-10-31 07:18] LABS: ALBUMIN 3.7 gm/dl (3.1-4.5); ALKALINE PHOSPHATASE 68 U/L (45-117); BUN 12 mg/dl (7-24); CHLORIDE 105 mmol/L (98-107); CHOLESTEROL 84 mg/dL (<200); CREATININE 1.17 mg/dL (0.70-1.30); HDL CHOLESTEROL 28 mg/dl (40-60); LDL CHOLESTEROL 26 mg/dL (9-159); POTASSIUM 4.3 mmol/L (3.5-5.1); SGOT/AST 18 IU/L (3-35); SGPT/ALT 46 U/L (12-78); SODIUM 139 mmol/L (136-145); TOTAL PROTEIN 7.1 gm/dL (6.4-8.2); TRIGLYCERIDES 151 mg/dl (<150); VLDL CHOLESTEROL 30 mg/dL (6-40)
[2018-10-31 07:55] VITALS: BP 110/58
[2018-10-31 08:25] LABS: VITAMIN D, 25-HYDROXY 53.9 ng/mL (30-100)
[2018-10-31 13:01] LABS: BILIRUBIN NEGATIVE (NEGATIVE); BLOOD NEGATIVE (NEGATIVE); CLARITY CLEAR (CLEAR); COLOR YELLOW (YELLOW); GLUCOSE TRACE (NEGATIVE); KETONE NEGATIVE (NEGATIVE); LEUKO ESTERASE NEGATIVE (NEGATIVE); NITRITE NEGATIVE (NEGATIVE); SPECIFIC GRAVITY <= 1.005 (1.005-1.030); UROBILINOGEN 0.2 E.U./dl (0.2-1.0)
[2018-10-31 13:24] LABS: WBC 0-2 wbc/hpf (0-5)
[2018-10-31 19:39] VITALS: BP 115/80
[2018-11-01 08:00] VITALS: BP 121/85
[2018-11-01 19:39] VITALS: BP 137/90
[2018-11-02 07:56] VITALS: BP 129/71
[2018-11-02 20:00] VITALS: BP 130/78
[2018-11-03 08:00] VITALS: BP 121/73
[2018-11-03 20:00] VITALS: BP 130/77
[2018-11-04 08:09] VITALS: BP 121/70
[2018-11-04 19:26] VITALS: BP 123/72
[2018-11-05 07:49] VITALS: BP 116/68
[2018-11-05 19:14] VITALS: BP 126/72
[2018-11-06 07:11] VITALS: BP 128/74
[2018-11-06 20:00] VITALS: BP 118/74
[2018-11-07 08:10] VITALS: BP 124/80
[2018-11-07 19:55] VITALS: BP 144/80
[2018-11-08 07:49] VITALS: BP 136/69
[2018-11-08 20:00] VITALS: BP 148/68
[2018-11-09 08:59] VITALS: BP 130/78
[2018-11-09 20:00] VITALS: BP 116/74
[2018-11-10 07:57] VITALS: BP 143/76
[2018-11-10] MEDS ORDERED: RISPERIDONE2 M2 PO (09:21)
[2018-11-10] MEDS ORDERED: MIRTAZAPINE15 M2 PO (09:21)
[2018-11-10] MEDS ORDERED: DULOXETINE HCL30 MG PO (09:21)
== END 2018-11-10 16:28 | disposition home or self-care (01) | DRG 885 ==
LOC: 3N 17:59
PROVIDERS: Psychiatry & Neurology Psychiatry; ADMIT Psychiatry & Neurology Psychiatry
DX: F25.9 Schizoaffective disorder, unspecified (principal); R45.851 Suicidal ideations; K22.10 Ulcer of esophagus without bleeding; F33.9 Major depressive disorder, recurrent, unspecified; T54.3X1A Toxic effect of corrosive alkalis and alkali-like substances, accidental (unintentional), initial encounter; E11.65 Type 2 diabetes mellitus with hyperglycemia; J45.909 Unspecified asthma, uncomplicated; T30.4 Corrosion of unspecified body region, unspecified degree; E78.5 Hyperlipidemia, unspecified; E55.9 Vitamin D deficiency, unspecified; K21.9 Gastro-esophageal reflux disease without esophagitis; F41.9 Anxiety disorder, unspecified; B00.1 Herpesviral vesicular dermatitis; Z91.5 Personal history of self-harm; Z80.0 Family history of malignant neoplasm of digestive organs; Z79.899 Other long term (current) drug therapy; Y93.89 Activity, other specified; Y92.89 Other specified places as the place of occurrence of the external cause; Y99.8 Other external cause status